=== PATIENT | male | born 1950 | race Caucasian/White ===

== ENCOUNTER 2017-09-16 11:45 | Inpatient (IN) ==
[2017-09-16] MEDS ORDERED: SALINE FLUSH 10ml SYRINGE IV ONE (12:19)
[2017-09-16] MEDS ORDERED: CEFTRIAXONE 1 G in NS 100 ML IV ONE (12:20)
[2017-09-16] MEDS ORDERED: NS 2,800 ML IV ONE (12:20)
--- NOTE | 2017-09-16 12:27 | Emergency Department Report ---
General Adult HPI - General Chief complaint: Medical Emergency Stated complaint: reaction to med,shaking,cant stand,cant talk, naus Time Seen by Provider: 09/16/17 12:06 Source: patient Mode of arrival: ambulatory - History of Present Illness HPI narrative: Noble is brought to the emergency room today by his for acute evaluation of shaking. She initially reports she felt the patient is having an ALLERGIC reaction to Lyrica. He was started on yesterday morning for sciatica type pain. He had no symptoms yesterday and took a dose morning and bedtime. This morning he woke up fine. However, several hours later began having shaking and chills. Arrival to the emergency room. He is noted to be having some shaking, heart rate 130, temperature 103, and room air saturations 90%. He is not having any respiratory distress or airways edema or compromise. Denies chest pain or shortness of breath. notes that patient has all of his lower teeth missing and he is working with a dentist in stages to get lower implants. Last Monday, 09/12. Patient had 2 lower gum screws placed for future implants. Onset (ago): hour(s) Radiation: non-radiation Severity: moderate Associated symptoms: other (Chills, Shaking) Treatments prior to arrival: none - Related Data Home Medications Medication Instructions Recorded Confirmed Acetaminophen 650 mg PO Q4H PRN 09/16/17 09/16/17 Calcium Carbonate/Vitamin D3 1 tab PO DAILY 09/16/17 09/16/17 [Calcium 600-Vit D3 400 Tablet] Finasteride [Proscar] 5 mg PO HS 09/16/17 09/16/17 Fish Oil/Dha/Epa [Fish Oil 1,200 1 cap PO DAILY 09/16/17 09/16/17 mg Fish Oil] Ginseng 100 mg PO DAILY 09/16/17 09/16/17 Losartan Potassium [Cozaar] 25 mg PO DAILY 09/16/17 09/16/17 Red Yeast Rice 600 mg PO BID 09/16/17 09/16/17 Saw [place] Fruit [Saw [place]] 450 mg PO BID 09/16/17 09/16/17 Ubidecarenone/Vit E Acet [Co Q-10 1 cap PO DAILY 09/16/17 09/16/17 100 mg Softgel] buPROPion HCl [Bupropion Xl] 150 mg PO DAILY 09/16/17 09/16/17 Allergies Allergy/AdvReac Type Severity Reaction Status Date / Time No Known Allergies Allergy Verified 09/16/17 12:23 Review of Systems All systems: reviewed and negative except as stated Constitutional: Reports: chills, other (shaking) PFSH Patient Stated Medical History Dental Problems Yes: recent dental implants Hypertension Yes Clinic Medical History (Last Reviewed 09/13/17 @ 10:02 by AIYANA Chambers) Lumbago (Chronic Medical) Radiculopathy of lumbosacral region (Chronic Medical) Mixed anxiety depressive disorder (Chronic Medical) Premature ejaculation, acquired, situational, moderate (Chronic Medical) Erectile dysfunction (Chronic Medical) BPH (benign prostatic hyperplasia) (Chronic Medical) Elevated PSA (Chronic Medical) Dr. Israel Mccauley Hypercholesteremia (Chronic Medical) Family History: Family History (Last Reviewed 09/13/17 @ 10:02 by AIYANA Chambers) Mother , Age 65 Multiple sclerosis Father , Age 70-lung cancer No problems noted. - Social History Smoking status: Never smoker Physical Exam - Normal Exams: Head:: Normocephalic without trauma Eyes:: Pupils are PERRLA w/ EOMI, No scleral icterus, irritation, or foreign bodies noted Neck:: Full range of motion, without adenopathy, JVD, bruits or thyromegaly Chest/Respirations:: Clear all brown, with good airflow, and symmetry bilaterally Cardiovascular:: Regular rate and rhythm, without murmur or gallop, Pulses 2+ all extremities, capillary refill, <2 seconds all extremities Abdomen:: Bowel sounds positive, soft, non-tender, non-distended Musculoskeletal:: No tenderness, or deformity noted, good range of motion, all extremities Integumentary:: No rashes, hives, or bruising noted, hair and nails, without abnormality Neurological:: Patient is alert, and oriented, cranial nerves, motor/sensory/ cerebellar, exams w/o gross deficits, to observation Psychiatric:: Patient exhibits, appropriate attention - ENT ENT exam: Present: other (lower teeth missing.) Course Course Narrative: 1415- Venous lactate and acetone are elevated as well as left shift with 20% bandemia. Given these findings, associated with tachycardia and fever. Patient may criteria for sepsis. Discussed with hospitalist, Dr. Mendes. She accepts patient for inpatient admission for further acute treatment. Reviewed labs, and plan of care with patient and . Somewhat sleepy from IV Benadryl. Otherwise, no symptoms Vital Signs Temperature 103.1 F H 09/16/17 12:05 Pulse Rate 130 H 09/16/17 12:05 Respiratory Rate 22 09/16/17 12:05 Blood Pressure 139/75 09/16/17 12:05 Pulse Oximetry 89 L 09/16/17 12:05 Temperature 103.0 F H 09/16/17 13:43 Pulse Rate 123 H 09/16/17 13:30 Respiratory Rate 20 09/16/17 13:30 Blood Pressure 103/53 09/16/17 13:30 Pulse Oximetry 93 09/16/17 13:30 Medical Decision Making - MDM Narrative Medical decision making narrative: Plan to admit to hospitalist for sepsis. Blood cultures pending, IV Rocephin and IV fluid bolus 30ml/kg given in ER - Differential Diagnosis allergic reaction, infection, pneumonia, SVT, sepsis - Lab Data Lab results reviewed: Yes: I reviewed the patient's lab results. Result diagrams: 09/16/17 12:38 09/16/17 12:39 Lab Results 09/16/17 09/16/17 09/16/17 Range/Units 12:38 12:39 12:39 WBC 6.3 (4.5-11.0) T/MM3 RBC 5.13 (4.50-5.90) M/MM3 Hgb 15.8 (13.5-17.5) GM/DL Hct 47.2 (41-53) % MCV 92.0 (80-100) UM3 MCH 30.8 (26-34) UUG MCHC 33.5 (31-37) GM/DL RDW Std Deviation 48.3 (36.9-50.2) FL Plt Count 140 (130-400) T/MM3 MPV 10.5 (9.4-12.4) UM3 Immature Gran % (Auto) Not performed Neut % (Auto) Not performed Lymph % (Auto) Not performed [place] % (Auto) Not performed Eos % (Auto) Not performed Baso % (Auto) Not performed Neut # (Auto) Not performed Lymph # (Auto) Not performed [place] # (Auto) Not performed Eos # (Auto) Not performed Baso # (Auto) Not performed Abs Immat Gran (auto) Not performed Neutrophils % (Manual) 75.0 H (33-66) % Band Neutrophils % 22.0 H (0-6) % Lymphocytes % (Manual) 3.0 L (23-45) % Neutrophils # (Manual) 4.7 (1.8-7.7) T/MM3 Band Neutrophils # 1.4 T/MM3 Lymphocytes # (Manual) 0.2 L (1-4.8) T/MM3 RBC Morph Comment Normal Turbidity < 20 (0-20) Sodium 144 (134-144) MEQ/L Potassium 4.5 (3.6-5) MEQ/L Chloride 105 (98-107) MEQ/L Carbon Dioxide 27 (22-30) MEQ/L Anion Gap 12 (5-15) MEQ/L BUN 19.0 (9-20) MG/DL Creatinine 0.9 (0.8-1.5) MG/DL GFR Calculation 84 BUN/Creatinine Ratio 21 (6-26) RATIO Glucose 132 H (75-110) MG/DL Calculated Osmolality 281 H (261-280) MOSM/KG Calcium 9.4 (8.4-10.2) MG/DL Total Bilirubin 1.50 H (0.20-1.30) MG/DL Icterus Index < 2 (0-7) AST 26 (17-59) U/L ALT 51 (21-72) U/L Alkaline Phosphatase 44 (38-126) U/L Total Protein 6.7 (6.3-8.2) G/DL Albumin 4.0 (3.5-5.0) G/DL Globulin 2.7 (2.4-3.6) G/DL Albumin/Globulin Ratio 1.5 (1.1-2.2) RATIO Plasma Lactate Cancelled Procalcitonin 3.16 H* NG/ML Specimen Hemolysis 21 (0-25) Ur Collection Type Urine Color (YELLOW) Urine Clarity Urine pH (5.0-8.0) Ur Specific [place] (1.015-1.025) Urine Protein (NEGATIVE) Urine Glucose (UA) (NEGATIVE) Urine Ketones (NEGATIVE) Urine Occult Blood (NEGATIVE) Urine Nitrate (NEGATIVE) Urine Bilirubin (NEGATIVE) Urine Urobilinogen (NORMAL) EU/DL Ur Leukocyte Esterase (NEGATIVE) Urinalysis Comment Specimen Comment Tests Not Done Reason Tests Not Done 09/16/17 09/16/17 09/16/17 Range/Units 13:16 13:27 14:18 WBC (4.5-11.0) T/MM3 RBC (4.50-5.90) M/MM3 Hgb (13.5-17.5) GM/DL Hct (41-53) % MCV (80-100) UM3 MCH (26-34) UUG MCHC (31-37) GM/DL RDW Std Deviation (36.9-50.2) FL Plt Count (130-400) T/MM3 MPV (9.4-12.4) UM3 Immature Gran % (Auto) Neut % (Auto) Lymph % (Auto) [place] % (Auto) Eos % (Auto) Baso % (Auto) Neut # (Auto) Lymph # (Auto) [place] # (Auto) Eos # (Auto) Baso # (Auto) Abs Immat Gran (auto) Neutrophils % (Manual) (33-66) % Band Neutrophils % (0-6) % Lymphocytes % (Manual) (23-45) % Neutrophils # (Manual) (1.8-7.7) T/MM3 Band Neutrophils # T/MM3 Lymphocytes # (Manual) (1-4.8) T/MM3 RBC Morph Comment Turbidity (0-20) Sodium (134-144) MEQ/L Potassium (3.6-5) MEQ/L Chloride (98-107) MEQ/L Carbon Dioxide (22-30) MEQ/L Anion Gap (5-15) MEQ/L BUN (9-20) MG/DL Creatinine (0.8-1.5) MG/DL GFR Calculation BUN/Creatinine Ratio (6-26) RATIO Glucose (75-110) MG/DL Calculated Osmolality (261-280) MOSM/KG Calcium (8.4-10.2) MG/DL Total Bilirubin (0.20-1.30) MG/DL Icterus Index (0-7) AST (17-59) U/L ALT (21-72) U/L Alkaline Phosphatase (38-126) U/L Total Protein (6.3-8.2) G/DL Albumin (3.5-5.0) G/DL Globulin (2.4-3.6) G/DL Albumin/Globulin Ratio (1.1-2.2) RATIO Plasma Lactate 2.6 H Procalcitonin NG/ML Specimen Hemolysis (0-25) Ur Collection Type Urine, clean catch Urine Color Yellow (YELLOW) Urine Clarity Clear Urine pH 6.5 (5.0-8.0) Ur Specific [place] 1.010 L (1.015-1.025) Urine Protein Negative (NEGATIVE) Urine Glucose (UA) Negative (NEGATIVE) Urine Ketones Negative (NEGATIVE) Urine Occult Blood Negative (NEGATIVE) Urine Nitrate Negative (NEGATIVE) Urine Bilirubin Negative (NEGATIVE) Urine Urobilinogen 0.2 (NORMAL) EU/DL Ur Leukocyte Esterase Negative (NEGATIVE) Urinalysis Comment Microscopic not ind. Specimen Comment Lab to recollect Tests Not Done Lactate Reason Tests Not Done Hemolyzed specimen - Radiology Data Radiology results reviewed: Yes: I reviewed the patient's radiology results. Disposition Clinical Impression: Sepsis Qualifiers: Sepsis type: sepsis due to unspecified organism Qualified Code(s): A41.9 - Sepsis, unspecified organism Disposition: 02 Acute Care Hosp, Other Condition: Stable Prescriptions: No Action buPROPion HCl [Bupropion Xl] 150 mg PO DAILY Ubidecarenone/Vit E Acet [Co Q-10 100 mg Softgel] 1 cap PO DAILY Finasteride [Proscar] 5 mg PO HS Red Yeast Rice 600 mg PO BID Ginseng 100 mg PO DAILY Fish Oil/Dha/Epa [Fish Oil 1,200 mg Fish Oil] 1 cap PO DAILY Losartan Potassium [Cozaar] 25 mg PO DAILY Acetaminophen 650 mg PO Q4H PRN PRN Reason: Pain Saw [place] Fruit [Saw [place]] 450 mg PO BID Calcium Carbonate/Vitamin D3 [Calcium 600-Vit D3 400 Tablet] 1 tab PO DAILY Referrals: Robbin Chung MD [Family Provider] - Time of Disposition: 14:25 - Seen By: midlevel
[2017-09-16] MEDS: SALINE FLUSH 10ml SYRINGE IVF PRN (12:37)
[2017-09-16] MEDS: ACETAMINOPHEN 500 MG TABLET PO PRN (12:54)
[2017-09-16] MEDS ORDERED: DiphenhydrAMINE 50 MG/ML INJECTION IVP ONE (13:29)
[2017-09-16] MEDS ORDERED: METHYLPREDNISOLONE SOD SUCC 125mg/2ml INJECTION IVP ONE (13:29)
[2017-09-16] MEDS ORDERED: KETOROLAC 30 MG/ML INJECTION IVP ONE (14:31)
--- NOTE | 2017-09-16 15:35 | History & Physical Report ---
History of Present Illness Date: 09/16/17 Chief complaint: shaking and chills HPI: Patient is a 67-year-old male who presents to the ER with his with complaints of shaking chills that started earlier this morning. He thought it was an allergic reaction to Lyrica. He was started on Lyrica yesterday by his PCP for radicular back pain and has taken 2 doses thus far. He is feeling fine yesterday and had no symptoms this morning upon awakening. Patient is in the process of getting dental implants. He currently has no lower teeth and has four "studs" implanted into the gums/lower jaw. 2 of these studs were just placed on 09/12/17. He has no chest pain or shortness of breath. No nausea or vomiting. In regard to his lumbosacral radicular symptoms, he has previously had 3 epidural steroid injections and has an MRI scheduled this coming Monday to further work up his symptoms. In the ER he was initially given diphenhydramine and methylprednisolone in the event this was an allergic reaction. He also complained of headache and was given a dose of 30 mg Toradol. When his lactate came back elevated and CBC revealed 22% bands, blood cultures were drawn and he was given a gram of Rocephin and was given 30 mg/kg IV normal saline per severe sepsis protocol. His chest x-ray was negative as well as his urinalysis. He was seen in the ER with his . He appeared drowsy, but was able to answer questions appropriately. Review of Systems All systems PM: 10-point ROS was reviewed, no additional remarkable complaints except - Constitutional Constitutional: Present: fatigue, fever(s), headache(s) - Neurological Neurological: Present: radicular pain (R leg. Pain in R buttock and numb feeling from knee down) PFSH Medical History Lumbago Radiculopathy of lumbosacral region Mixed anxiety depressive disorder Erectile dysfunction BPH - Elevated PSA Dr. Israel Mccauley Hypercholesteremia Surgical History: Carpal tunnel surgery on the right, appendectomy Family History: Family History Mother , Age 65 Multiple sclerosis Father , Age 70-lung cancer No problems noted. - Social History Smoking status: Never smoker Substance use type: does not use Alcohol intake frequency: does not drink Housing: house Household members: spouse Current occupational status: retired Previous occupational history: [employer] Social history: PCP-Leia Cano APRN with Dr. Chung Patient has also seen an high school learning support teacher in [place] for what he describes as a polyp near a nerve in his ear. Medications Home Medications Medication Instructions Recorded Confirmed Type Acetaminophen 650 mg PO Q4H PRN 09/16/17 09/16/17 History Calcium Carbonate/Vitamin D3 1 tab PO DAILY 09/16/17 09/16/17 History [Calcium 600-Vit D3 400 Tablet] Finasteride [Proscar] 5 mg PO HS 09/16/17 09/16/17 History Fish Oil/Dha/Epa [Fish Oil 1,200 1 cap PO DAILY 09/16/17 09/16/17 History mg Fish Oil] Ginseng 100 mg PO DAILY 09/16/17 09/16/17 History Losartan Potassium [Cozaar] 25 mg PO DAILY 09/16/17 09/16/17 History Red Yeast Rice 600 mg PO BID 09/16/17 09/16/17 History Saw [place] Fruit [Saw [place]] 450 mg PO BID 09/16/17 09/16/17 History Ubidecarenone/Vit E Acet [Co Q-10 1 cap PO DAILY 09/16/17 09/16/17 History 100 mg Softgel] buPROPion HCl [Bupropion Xl] 150 mg PO DAILY 09/16/17 09/16/17 History Allergies Allergy/AdvReac Type Severity Reaction Status Date / Time No Known Allergies Allergy Verified 09/16/17 12:23 Exam Vital Signs: Temperature 99.0 F 09/16/17 15:20 Pulse Rate 100 09/16/17 15:20 Respiratory Rate 18 09/16/17 15:20 Blood Pressure 110/57 09/16/17 15:20 Pulse Oximetry 93 09/16/17 15:26 Height/Weight/BMI: Height 1.7 m Weight 96.5 kg Body Mass Index 33.3 - Constitutional Present: no acute distress, well nourished, well developed - Routine HEENT Exam Head: Present: normocephalic, atraumatic Eye: Present: EOMI, PERRL ENT: Present: mucous membranes moist. Absent: dentition normal (edentulous on the lower. Has 4 dental studs implanted to the lower gums. No sign of swelling or redness or infection.) - Routine Neck Exam Present: supple. Absent: lymphadenopathy, thyromegaly - Routine Respiratory Exam Present: CTA bilaterally. Absent: wheezes - Routine Cardiovascular Exam Present: tachycardia. Absent: murmur Comments: Regular rhythm - Routine Abdominal Exam Present: soft, normoactive bowel sounds, non distended. Absent: tenderness - Routine Extremities Exam Present: no edema, normal capillary refill - Routine Skin Exam Present: dry, warm Comments: Mildly diaphoretic on his face. - Routine Neurological Exam Present: alert, oriented X3, CN II-XII intact - Routine Psychiatric Exam Present: normal affect, cooperative, good insight Results - Labs CBC & Chem 7: 09/16/17 12:38 09/16/17 12:39 Labs: Laboratory Tests 09/16/17 12:38 Neutrophils % (Manual) 75.0 H Band Neutrophils % 22.0 H Laboratory Tests 09/16/17 09/16/17 12:39 12:39 Total Bilirubin 1.50 H AST 26 ALT 51 Alkaline Phosphatase 44 Plasma Lactate Cancelled Procalcitonin 3.16 H* Urinalysis 09/16/17 14:18 Ur Collection Type Urine, clean catch Urine Color Yellow Urine Clarity Clear Urine pH 6.5 Ur Specific [place] 1.010 L Urine Protein Negative Urine Glucose (UA) Negative Urine Ketones Negative Urine Occult Blood Negative Urine Nitrate Negative Urine Bilirubin Negative Urine Urobilinogen 0.2 Ur Leukocyte Esterase Negative Respiratory panel 09/16/17 14:34 Adenovirus (PCR) Negative B.parapertussis DNA PCR Negative C. pneumoniae DNA (PCR) Negative Coronavirus OC43 (PCR) Negative Coronavirus HKU1 (PCR) Negative Coronavirus 229E (PCR) Negative Coronavirus NL63 (PCR) Negative Human Metapneumovir PCR Negative Influenza Type A (PCR) Negative Influenza Type B (PCR) Negative M. pneumoniae (PCR) Negative Parainfluenza 1 (PCR) Negative Parainfluenza 2 (PCR) Negative Parainfluenza 3 (PCR) Negative Parainfluenza 4 (PCR) Negative RSV (PCR) Negative Entero/Rhino (PCR) Negative - Imaging and Cardiology Chest x-ray Additional comments: preliminary read by ER doctor is neg Assessment and Plan (1) Sepsis Current visit: Yes Status: Acute Assessment and Plan: Impression Severe sepsis-based on suspected source of infection from recent dental work, SIRS criteria of temperature of 103, heart rate of 130 and 22% bands plus organ dysfunction evidenced by lactate of 2.6 Hypoxia Fever of unknown etiology Lumbago Radiculopathy of lumbosacral region Mixed anxiety depressive disorder Erectile dysfunction BPH - Elevated PSA Dr. sIrael Mccauley Hypercholesterolemia Plan Admit patient to inpatient status under the care of the hospitalist service ( Dr. Mendes, attending). Hospital stay is expected to exceed 2 overnights given his severe sepsis. He'll require close monitoring, antibiotic therapy, and IV fluids. Blood cultures have been drawn in the ER. 1 dose of Rocephin has been given. Patient has received 2800 mL of IV normal saline. Repeat lactate is ordered. Respiratory panel was neg. He was also given Toradol 30 mg IV in the ER for headache, and diphenhydramine 25 mg IV and methylprednisolone 125 mg IV for possible allergic reaction to Lyrica. Start cefepime 1 g IV every 6 hours, levofloxacin 750 mg IV every 24, and consult pharmacy for vancomycin dosing for treatment of sepsis of an unknown source. Will adjust antibiotic coverage as blood cultures are resulted. SCDs and Lovenox for VTE prophylaxis. Patient wishes to be a full code. Care to return to his PCP, Leia Cano APRN, on discharge. DVT Prophylaxis: SCD's, Lovenox Resuscitation Status: Full Code - Physician Narriative Physician: Tila Mendes MD Narriative: 09/16/17 18:18 Mr. Stephens was seen shortly after he arrived on the floor. She describes shaking chills earlier but was not aware of a temperature until he arrived in the emergency room. He denies diaphoresis and does not have any symptoms localizing source of infection including joint pain, dyspnea, cough, URI symptoms, diarrhea, dysuria, or wounds/skin changes. He continues to express concern that Lyrica caused presenting symptoms. He denies oral pain or inflammation after recent dental work. He's had no recent travel except to trip [facility] and does not hike or sheehan. Examination reveals an alert male with fluent speech There is no indication of erythema/inflammation along the lower dental ridge Neck is supple and without adenopathy No palpebral or nail splinter hemorrhages, no Osler's nodes/[place] lesions appreciated. Lungs clear except faint crackles at the left base initially-cleared with repeated inspiratory effort. Regular cardiac rhythm, normal S1-S2-no murmur appreciated either supine or upright. Abdomen benign. 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 Sepsis criteria met although source of sepsis is unclear. Recent dental work will require additional blood cultures to be obtained if fevers recur. Respiratory viral panel negative. At present sepsis of unknown origin and antibiotics initiated per protocol. Hemodynamically stable at present with mild hypoxia. Chest x-ray reviewed by myself-NAD. Follow with fluids. No recent epidural steroid injections. Recent outpatient records reviewed; discussed with ER provider. Sepsis Assessment - Evaluation SIRS Criteria: temperature > 100.9, pulse > 90 beats/minute, Bands > 10% Severe Sepsis: lactate > 2.0 mg/dL, increase in SOFA > or equal to 2 (platelet count 140,000 bilirubin 1.5; no blood gas available and at present I don't believe is indicated.) - Focused Exam-within 6 hours of IVF Bolus Date exam was performed: 09/16/17 Time exam was performed: 14:44 T 99.4 RR 18, BP 110/57, P 100, O2 sat 95% on 2L NC Respiratory exam: Present: CTA bilaterally Cardiovascular exam: Present: no murmur, tachycardia (regular rhythm) Capillary Refill: < 2Seconds Peripheral pulse strength: Normal Peripheral pulse location: Radial Skin Temperature: Warm Skin Color: [place] Hospital Course Summary Disclaimer: The visit summary below is not to be considered part of the above Progress Note. Hospital Course: Impression Severe sepsis-based on suspected source of infection from recent dental work, SIRS criteria of temperature of 103, heart rate of 130 and 22% bands plus organ dysfunction evidenced by lactate of 2.6 Hypoxia Fever of unknown etiology Lumbago Radiculopathy of lumbosacral region Mixed anxiety depressive disorder Erectile dysfunction BPH - Elevated PSA Dr. Israel Mccauley Hypercholesterolemia Plan Admit patient to inpatient status under the care of the hospitalist service ( Dr. Mendes, attending). Hospital stay is expected to exceed 2 overnights given his severe sepsis. He'll require close monitoring, antibiotic therapy, and IV fluids. Blood cultures have been drawn in the ER. 1 dose of Rocephin has been given. Patient has received 2800 mL of IV normal saline. Repeat lactate is ordered. Respiratory panel was neg. He was also given Toradol 30 mg IV in the ER for headache, and diphenhydramine 25 mg IV and methylprednisolone 125 mg IV for possible allergic reaction to Lyrica. Start cefepime 1 g IV every 6 hours, levofloxacin 750 mg IV every 24, and consult pharmacy for vancomycin dosing for treatment of sepsis of an unknown source. Will adjust antibiotic coverage as blood cultures are resulted. SCDs and Lovenox for VTE prophylaxis. Patient wishes to be a full code. Care to return to his PCP, Leia Cano APRN, on discharge.
[2017-09-16] MEDS ORDERED: VANCOMYCIN - PHARMACY CONSULT MC ONE (16:34)
[2017-09-16] MEDS: CEFEPIME 1 GM in NS 100 ML IV SCH ×2 (17:19→21:48)
[2017-09-16] MEDS: LEVOFLOXACIN PB 750 MG/150 ML BAG IV SCH (18:04)
[2017-09-16] MEDS: FINASTERIDE 5 MG TABLET PO SCH (20:09)
[2017-09-17] MEDS ORDERED: DiphenhydrAMINE 25 MG CAPSULE PO PRN (00:04)
[2017-09-17] MEDS: CEFEPIME 1 GM in NS 100 ML IV SCH ×4 (02:25→20:30)
[2017-09-17] MEDS: SAW PALMETTO FRUIT 450 MG PO SCH ×3 (06:20→21:22)
[2017-09-17] MEDS: ACETAMINOPHEN 500 MG TABLET PO PRN (07:48)
[2017-09-17] MEDS: BuPROPion XL 150mg (24HR) TABLET PO SCH (08:34)
[2017-09-17] MEDS: CALCIUM 600 + VIT D 400 TABLET PO SCH (08:34)
[2017-09-17] MEDS: ENOXAPARIN 40 MG/0.4 ML INJECTION SQ SCH (08:34)
[2017-09-17] MEDS: LOSARTAN 50 MG TABLET PO SCH (08:35)
[2017-09-17] MEDS: COENZYME Q-10 200mg TABLET PO SCH (08:39)
[2017-09-17] MEDS ORDERED: COENZYME Q-10 200mg TABLET PO SCH (09:00)
--- NOTE | 2017-09-17 09:30 | XRay Report ---
INDICATION: hypoxia, fever PROCEDURE: CHEST 2-VIEWS UPRIGHT (PA & LAT) Encounter: Initial COMPARISON: None FINDINGS: The lungs are clear without evidence of focal abnormal airspace opacity. There is no pleural effusion or pneumothorax. The heart size, mediastinal contours and pulmonary vascularity are within normal limits. There is no significant skeletal abnormality. IMPRESSION: No acute cardiopulmonary disease. .
[2017-09-17] MEDS: SALINE FLUSH 10ml SYRINGE IVF PRN ×2 (11:35→20:29)
--- NOTE | 2017-09-17 13:46 | Pharmacy Consult-Antibiotics ---
Pharmacy Consult-Vancomycin - Laboratory Information WBC 15.1 T/MM3 (4.5-11.0) H D 09/17/17 04:01 BUN 17.0 MG/DL (9-20) 09/17/17 04:01 Creatinine 0.8 MG/DL (0.8-1.5) 09/17/17 04:01 Procalcitonin 3.16 NG/ML H* 09/16/17 12:39 - Consult Information 67 yo Male started on Vancomycin protocol, Cefepime and Levofloxacin for empiric coverage of sepsis. goal Vancomycin trough range= 15 to 20 mcg/ml Vancomycin 2,000 mg IV x 1 dose then Vancomycin 1,500 mg IV Q12h ordered. Pharmacy will monitor and adjust as needed. Thank you, Sugar Reece [facility]
[2017-09-17] MEDS: LEVOFLOXACIN PB 750 MG/150 ML BAG IV SCH (16:19)
--- NOTE | 2017-09-17 17:04 | Progress Note ---
<Monisha Mejia D - Last Filed: 09/17/17 17:01> - Date 09/17/17 Subjective: Noble is seen today in follow up. He is feeling much better. Has been afebrile overnight per his report. He is not having any pain. D/W him plan of care. chart is reviewed for collateral information. Objective Vital signs: Temperature 97.2 F 09/17/17 15:26 Pulse Rate 67 09/17/17 15:26 Respiratory Rate 14 09/17/17 15:26 Blood Pressure 137/70 09/17/17 15:26 Pulse Oximetry 94 09/17/17 15:26 Height/Weight/BMI: Height 1.7 m Weight 96.1 kg Body Mass Index 33.3 - Constitutional Present: no acute distress, average body habitus, cooperative - Routine HEENT Exam Head: Present: normocephalic, atraumatic Eye: Present: EOMI, PERRL ENT: Present: mucous membranes moist - Routine Respiratory Exam Present: CTA bilaterally. Absent: dyspnea, decreased breath sounds, rales, rhonchi, wheezes, crackles - Routine Cardiovascular Exam Present: RRR, S1, S2, no murmur - Routine Abdominal Exam Present: soft, normoactive bowel sounds, non distended, non tender - Routine Extremities Exam Present: no edema, non tender, full ROM - Routine Musculoskeletal Exam Musculoskeletal: Present: no clubbing or cyanosis, normal strength, moving extremities well - Routine Skin Exam Present: intact, dry - Routine Neurological Exam Present: alert, oriented X3, CN II-XII intact, moving all extremities - Routine Psychiatric Exam Present: normal affect, normal thought process, cooperative Results - Labs CBC & Chem 7: 09/17/17 04:01 09/17/17 04:01 Microbiology Results: Microbiology 09/16/17 12:39 Peripheral/Iv Start Blood Culture - Preliminary No Growth After 1 Day 09/16/17 12:55 Peripheral/Iv Start Blood Culture - Preliminary No Growth After 1 Day Assessment and Plan (1) Sepsis Current visit: Yes Status: Acute Assessment and Plan: Impression Severe sepsis-based on suspected source of infection from recent dental work, SIRS criteria of temperature of 103, heart rate of 130 and 22% bands plus organ dysfunction evidenced by lactate of 2.6 Hypoxia Fever of unknown etiology Lumbago Radiculopathy of lumbosacral region Mixed anxiety depressive disorder Erectile dysfunction BPH - Elevated PSA Dr. Israel Mccauley Hypercholesterolemia Plan 09/17/17 *FUO- bandemia is much better. Leukocytosis is a favorable progression. Continue current antibiotics- await BC results. Negative so far. Will order an echo to R/O endocarditis due to dental work. If that is negative, could image lumbar spine to R/O discitis. So far imaging has been negative. *He is doing well otherwise. Continue home medications as appropriate. Repeat labs in am for stability. DVT px is ordered. DVT Prophylaxis: Lovenox Resuscitation Status: Full Code - Time spent with patient Time with patient PN: 30 minutes Hospital Course Summary Disclaimer: The visit summary below is not to be considered part of the above Progress Note. Hospital Course: Impression Severe sepsis-based on suspected source of infection from recent dental work, SIRS criteria of temperature of 103, heart rate of 130 and 22% bands plus organ dysfunction evidenced by lactate of 2.6 Hypoxia Fever of unknown etiology Lumbago Radiculopathy of lumbosacral region Mixed anxiety depressive disorder Erectile dysfunction BPH - Elevated PSA Dr. Israel Mccauley Hypercholesterolemia Plan Admit patient to inpatient status under the care of the hospitalist service ( Dr. Mendes, attending). Hospital stay is expected to exceed 2 overnights given his severe sepsis. He'll require close monitoring, antibiotic therapy, and IV fluids. Blood cultures have been drawn in the ER. 1 dose of Rocephin has been given. Patient has received 2800 mL of IV normal saline. Repeat lactate is ordered. Respiratory panel was neg. He was also given Toradol 30 mg IV in the ER for headache, and diphenhydramine 25 mg IV and methylprednisolone 125 mg IV for possible allergic reaction to Lyrica. Start cefepime 1 g IV every 6 hours, levofloxacin 750 mg IV every 24, and consult pharmacy for vancomycin dosing for treatment of sepsis of an unknown source. Will adjust antibiotic coverage as blood cultures are resulted. SCDs and Lovenox for VTE prophylaxis. Patient wishes to be a full code. Care to return to his PCP, Leia Cano APRN, on discharge. 09/17/17 17:09 09/17/17 *FUO- bandemia is much better. Leukocytosis is a favorable progression. Continue current antibiotics- await BC results. Negative so far. Will order an echo to R/O endocarditis due to dental work. If that is negative, could image lumbar spine to R/O discitis. So far imaging has been negative. *He is doing well otherwise. Continue home medications as appropriate. Repeat labs in am for stability. DVT px is ordered. <Tila Mendes - Last Filed: 09/17/17 17:53> - Date 09/17/17 Results - Labs CBC & Chem 7: 09/17/17 04:01 09/17/17 04:01 Assessment and Plan (1) Sepsis Current visit: Yes Status: Acute Assessment and Plan: I have independently evaluated and examined this patient. I reviewed the chart, the patient's history, and the FLOOR SURFACER/PA's documented findings as above. We discussed and formulated the assessment and plan as above with additions as below: Mr. Stephens was seen with his the bedside. He has had no concerns since admission and fever resolved after the initial temperatures described in the emergency room. He denies cough, diarrhea, recurrent rigors or chills, sore throat or sinus pain, or any discomfort urinating. Maximum temperature overnight was 98.2. NAD, alert, Sinuses nontender bilaterally frontal and maxillary Neck supple Respirations nonlabored, good airflow, breath sounds clear Regular rhythm, no cardiac murmur appreciated Abdomen benign White count elevated today but bands nearly resolved. Hyperglycemia persists. Check A1c in a.m. in addition to other labs. Hospital Course Summary Disclaimer: The visit summary below is not to be considered part of the above Progress Note.
[2017-09-17] MEDS: NS FLUSH BAG 500ml IV PRN (20:30)
[2017-09-17] MEDS: FINASTERIDE 5 MG TABLET PO SCH (20:40)
[2017-09-18] MEDS: CEFEPIME 1 GM in NS 100 ML IV SCH ×4 (02:34→20:29)
[2017-09-18] MEDS: SALINE FLUSH 10ml SYRINGE IVF PRN ×3 (02:34→20:28)
[2017-09-18 07:59] VITALS: O2SAT 95
[2017-09-18] MEDS: LOSARTAN 50 MG TABLET PO SCH (08:30)
[2017-09-18] MEDS: COENZYME Q-10 200mg TABLET PO SCH (08:30)
[2017-09-18] MEDS: CALCIUM 600 + VIT D 400 TABLET PO SCH (08:31)
[2017-09-18] MEDS: BuPROPion XL 150mg (24HR) TABLET PO SCH (08:31)
[2017-09-18] MEDS: ENOXAPARIN 40 MG/0.4 ML INJECTION SQ SCH (08:31)
[2017-09-18] MEDS: ACETAMINOPHEN 500 MG TABLET PO PRN ×2 (08:33→23:45)
[2017-09-18] MEDS: SAW PALMETTO FRUIT 450 MG PO SCH ×2 (09:17→22:58)
[2017-09-18] MEDS ORDERED: SALINE FLUSH 10ml SYRINGE ONE (11:06)
--- NOTE | 2017-09-18 11:22 | Progress Note ---
<Emani Freedman - Last Filed: 09/18/17 11:09> - Date 09/18/17 Subjective: Patient is seen sitting up in bed. He reports he feels fine. He did not sleep well last night, would like something to help him sleep tonight if he has to stay another day. He states his back pain has been less since he's been hospitalized. He's had pretty significant and consistent back pain since July. He reports his last epidural steroid injection was approximately 2-1/2 weeks ago. He continues to have some tingling in the right foot and ankle at the current time. He continues on cefepime, Levaquin, and vancomycin for sepsis of unknown source. Blood cultures have shown no growth at this time. His white blood cell count was elevated yesterday but is within normal limits today. His pro-calcitonin is significantly elevated today. He has had no fever since day of admission. No chest pain, shortness of breath, nausea or vomiting. Objective Vital signs: Temperature 98.8 F 09/18/17 07:58 Pulse Rate 82 09/18/17 07:58 Respiratory Rate 16 09/18/17 07:58 Blood Pressure 156/98 H 09/18/17 07:58 Pulse Oximetry 95 09/18/17 07:58 Height/Weight/BMI: Height 1.7 m Weight 94 kg Body Mass Index 33.3 - Constitutional Present: no acute distress, well nourished, well developed - Routine HEENT Exam ENT: Present: mucous membranes moist. Absent: dentition normal (edentulous- lower. Minimal erythema of the gum around right front post.) - Routine Respiratory Exam Present: CTA bilaterally. Absent: wheezes - Routine Cardiovascular Exam Present: RRR. Absent: murmur - Routine Abdominal Exam Present: soft, normoactive bowel sounds, non distended. Absent: tenderness - Routine Extremities Exam Present: no edema, normal capillary refill - Routine Skin Exam Present: dry, warm - Routine Neurological Exam Present: alert, oriented X3 - Routine Lymphatic Exam Lymphatic: Absent: adenopathy - Routine Psychiatric Exam Present: normal affect, cooperative Results - Labs CBC & Chem 7: 09/18/17 04:48 09/18/17 04:48 Labs: Laboratory Tests 09/18/17 09/18/17 04:48 04:48 Hemoglobin A1c 6.0 H Procalcitonin 23.22 H* Microbiology Results: Blood cultures-No growth after 1 day Assessment and Plan (1) Sepsis Current visit: Yes Status: Acute Assessment and Plan: Impression Severe sepsis-based on suspected source of infection from recent dental work, SIRS criteria of temperature of 103, heart rate of 130 and 22% bands plus organ dysfunction evidenced by lactate of 2.6 Hypoxia Fever of unknown etiology Lumbago Radiculopathy of lumbosacral region Thrombocytopenia-not POA Mixed anxiety depressive disorder Erectile dysfunction BPH - Elevated PSA Dr. Israel Mccauley Hypercholesterolemia Plan Echocardiogram results are currently pending. MRI of the lumbosacral spine with and without contrast is ordered to rule out discitis and further workup is ongoing back pain/radiculopathy Continue antibiotics for now. Overall he continues to do well. His platelets have decreased some since admission. Continue to follow. He is on Lovenox. Hospital Course Summary Disclaimer: The visit summary below is not to be considered part of the above Progress Note. Hospital Course: Impression Severe sepsis-based on suspected source of infection from recent dental work, SIRS criteria of temperature of 103, heart rate of 130 and 22% bands plus organ dysfunction evidenced by lactate of 2.6 Hypoxia Fever of unknown etiology Lumbago Radiculopathy of lumbosacral region Mixed anxiety depressive disorder Erectile dysfunction BPH - Elevated PSA Dr. Israel Mccauley Hypercholesterolemia 09/16/17-hospital admission Admit patient to inpatient status under the care of the hospitalist service ( Dr. Mendes, attending). Hospital stay is expected to exceed 2 overnights given his severe sepsis. He'll require close monitoring, antibiotic therapy, and IV fluids. Blood cultures have been drawn in the ER. 1 dose of Rocephin has been given. Patient has received 2800 mL of IV normal saline. Repeat lactate is ordered. Respiratory panel was neg. He was also given Toradol 30 mg IV in the ER for headache, and diphenhydramine 25 mg IV and methylprednisolone 125 mg IV for possible allergic reaction to Lyrica. Start cefepime 1 g IV every 6 hours, levofloxacin 750 mg IV every 24, and consult pharmacy for vancomycin dosing for treatment of sepsis of an unknown source. Will adjust antibiotic coverage as blood cultures are resulted. SCDs and Lovenox for VTE prophylaxis. Patient wishes to be a full code. Care to return to his PCP, Leia Cano APRN, on discharge. 09/17/17 *FUO- bandemia is much better. Leukocytosis is a favorable progression. Continue current antibiotics- await BC results. Negative so far. Will order an echo to R/O endocarditis due to dental work. If that is negative, could image lumbar spine to R/O discitis. So far imaging has been negative. *He is doing well otherwise. Continue home medications as appropriate. Repeat labs in am for stability. DVT px is ordered. 09/18/17 Echocardiogram results are currently pending. MRI of the lumbosacral spine with and without contrast is ordered to rule out discitis and further workup is ongoing back pain/radiculopathy Continue antibiotics for now. Overall he continues to do well. His platelets have decreased some since admission. Continue to follow. He is on Lovenox. <Luis Alberto Mendesabdirashid Carmichael - Last Filed: 09/18/17 21:52> - Date 09/18/17 Results - Labs CBC & Chem 7: 09/18/17 04:48 09/18/17 04:48 Assessment and Plan (1) Sepsis Current visit: Yes Status: Acute Assessment and Plan: I have independently evaluated and examined this patient. I reviewed the chart, the patient's history, and the DIESEL DINKEY OPERATOR/PA's documented findings as above. We discussed and formulated the assessment and plan as above with additions as below: Mr. Stephens was seen earlier this afternoon with his at the bedside. He reports that he feels fine and has had no further fever. He denied flank pain and reports that low back pain/radicular pain has improved somewhat after recent epidural injections. He denied dyspnea. The patient is alert, respirations are nonlabored with clear breath sounds, no cardiac murmur Abdomen benign, no CVAT, no tenderness on palpation over the lower spine MRI reviewed by myself and discussed with Dr. Hernandez-no evidence of discitis/ epidural abscess. DDD present with primary finding at L3-L4 with disc extrudes 12 mm causing bilateral neural foraminal narrowing and nerve root impingement especially on the right. Echocardiogram completed early today but not available for cardiology review this afternoon-have left message for echo techs to locate study so it can be interpreted. Given absence of ongoing symptoms will begin de-escalating antibiotics with discontinuation of cefepime and conversion to oral Levaquin. Continue vancomycin at present; hopefully echo can be reviewed tomorrow. Increase procalcitonin worrisome, would suggest antibiotics are not addressing bacterial process the patient is clinically stable and without recurrent fever. Lactic acidosis has resolved as has left shift and leukocytosis. Recheck procalcitonin in a.m. A1c 6.0, minimal elevation in blood sugars postprandially-discontinue Accu- Cheks. DVT Prophylaxis: Lovenox Resuscitation Status: Full Code Hospital Course Summary Disclaimer: The visit summary below is not to be considered part of the above Progress Note.
[2017-09-18 13:10] VITALS: BMI 32.4
[2017-09-18] MEDS: LEVOFLOXACIN PB 750 MG/150 ML BAG IV SCH (15:56)
--- NOTE | 2017-09-18 16:13 | Magnetic Resonance Report ---
EXAM: MR lumbar spine wo/w con DATE: 09/18/2017 12:00 AM COMPARISON: Prior MRI of the lumbar spine dated 11/18/2015 INDICATION: back pain, sepsis TECHNIQUE: Multi-planar multi-weighted magnetic resonance imaging of the lumbar spine was performed before and following intravenous gadolinium administration using the standard lumbar spine protocol. 18 cc of ProHance was administered intravenously for the exam. FINDINGS: The sagittal images show the lumbar vertebral bodies are of normal marrow signal intensity and contour and in good alignment without evidence of compression fracture deformity or subluxation. There is moderate degenerative narrowing of the L3-L4 disc space with some mild irregularity of the endplates and degenerative endplate Modic signal changes. This is stable when compared to the prior MRI of the lumbar spine dated 11/18/2015. No acute compression fractures or traumatic malalignment is are visualized. There is straightening of the lumbar lordosis. The conus terminates normally at the T12-L1 disc level. No clumping of intrathecal nerve roots is evident. Limited views of the abdomen and pelvis are unremarkable. Axial images: L1-L2: No significant disc bulging, spinal canal stenosis, or neural foraminal narrowing. L2-L3: Mild broad-based bulging of the disc is evident. There is mild facet joint arthrosis. The central canal and neural foramina are well-maintained. L3-L4: Broad-based bulging of the disc with associated facet joint arthrosis moderately narrowing the central canal to 8 mm. There is a superimposed right paracentral disc protrusion estimated at 6 mm in AP dimension. There is extruded disc material extending 12 mm below the superior endplate of L4. There is bilateral neural foraminal narrowing and nerve root impingement, right greater than left. L4-L5: Mild broad-based bulging of the disc with early facet joint arthrosis. There is no significant central canal or neural foraminal narrowing. L5-S1: Broad-based right paracentral disc protrusion measuring 4 mm in AP dimension and 16 mm in transverse dimension. There is associated facet joint arthrosis mildly narrowing the central canal to 11 mm. There is impingement on the right L5 and S1 nerve roots. IMPRESSION: 1. Broad-based disc bulge with superimposed right paracentral disc herniation at L3-L4 with extruded disc material extending 12 mm below the superior endplate of L4. There is bilateral neural foraminal narrowing and nerve root impingement right greater than left. 2. Broad-based right paracentral disc protrusion as described mildly narrowing the central canal. There is associated impingement on the right L5 and S1 nerve roots. 3. Mild bulging discs at L2-L3 and L4-L5 without significant central canal or neural foraminal stenosis. 4. Straightening of the lumbar lordosis which can indicate spasm. .
[2017-09-18] MEDS ORDERED: ZOLPIDEM 5 MG TABLET PO PRN (20:21)
[2017-09-18] MEDS: NS FLUSH BAG 500ml IV PRN (20:28)
[2017-09-18] MEDS: FINASTERIDE 5 MG TABLET PO SCH (20:35)
[2017-09-18 23:43] VITALS: PULSE 93
[2017-09-19] MEDS ORDERED: LEVOFLOXACIN 750 MG TABLET PO SCH (06:30)
[2017-09-19 07:36] VITALS: BP 141/90; RESP 16
[2017-09-19] MEDS: ACETAMINOPHEN 500 MG TABLET PO PRN (09:06)
[2017-09-19] MEDS: COENZYME Q-10 200mg TABLET PO SCH (09:06)
[2017-09-19] MEDS: SALINE FLUSH 10ml SYRINGE IVF PRN (09:06)
[2017-09-19] MEDS: CALCIUM 600 + VIT D 400 TABLET PO SCH (09:06)
[2017-09-19] MEDS: ENOXAPARIN 40 MG/0.4 ML INJECTION SQ SCH (09:06)
[2017-09-19] MEDS: LOSARTAN 50 MG TABLET PO SCH (09:06)
[2017-09-19] MEDS: BuPROPion XL 150mg (24HR) TABLET PO SCH (09:06)
[2017-09-19 09:10] VITALS: TEMP 97.8
[2017-09-19] MEDS: SAW PALMETTO FRUIT 450 MG PO SCH (09:16)
--- NOTE | 2017-09-19 11:06 | Pharmacy Consult-Antibiotics ---
Pharmacy Consult-Vancomycin - Laboratory Information WBC 6.4 T/MM3 (4.5-11.0) 09/19/17 07:36 BUN 15.0 MG/DL (9-20) 09/19/17 07:36 Creatinine 0.9 MG/DL (0.8-1.5) 09/19/17 07:36 Procalcitonin 8.85 NG/ML H* 09/19/17 07:36 Vancomycin Trough 14.62 UG/ML (15-20) L 09/19/17 07:36 - Consult Information VANCOMYCIN CONSULT: Vancomycin Trough = 14.6 mcg/ml. Today's SCr = 0.9 mg/dl. Will continue Vancomycin 1500 mg IV q12hrs. Will continue to monitor and make adjustments accordingly. Thank you.
--- NOTE | 2017-09-19 15:20 | Discharge Summary ---
Discharge Information Date of admission: 09/16/17 14:44 Anticipated date of discharge: 09/19/17 Attending Physician: Tila Mendes MD Primary care physician: Robbin Chung MD - Discharge Diagnosis (1) Fever of unknown origin Status: Acute (2) Sepsis Status: Acute Fever of unknown etiology Severe sepsis-infectious source not identified Hypoxia-POA, resolved Hyperglycemia-POA, resolved Degenerative disc disease with herniated disc L3-L4 with neuroforaminal narrowing Radiculopathy of lumbosacral region Thrombocytopenia him a mild-not POA Mixed anxiety depressive disorder BPH - Procedures Procedures: Transthoracic echocardiogram on 11/19/16-formal report pending at discharge however verbal report on date of discharge indicated no significant abnormalities and specifically no vegetations - Laboratory Labs: On admission (09/16/17) white count 6.3 with 22% bands, 75% neutrophils. Initial lactic acid 2.6 with subsequent study 1.5; initial procalcitonin 3.16 with follow-up study on 09/18-23.22 UA negative, respiratory viral panel negative 09/19/17 07:36 09/19/17 07:36 Differential at discharge unremarkable - Microbiology Cultures 2 negative after 3 days - Radiology Radiology: Chest x-ray on 09/16/17-NAD MRI of the lumbar spine with and without contrast on 09/18/17: The sagittal images show the lumbar vertebral bodies are of normal marrow signal intensity and contour and in good alignment without evidence of compression fracture deformity or subluxation. There is moderate degenerative narrowing of the L3-L4 disc space with some mild irregularity of the endplates and degenerative endplate Modic signal changes. This is stable when compared to the prior MRI of the lumbar spine dated 11/18/2015. No acute compression fractures or traumatic malalignment is are visualized. There is straightening of the lumbar lordosis. The conus terminates normally at the T12-L1 disc level. No clumping of intrathecal nerve roots is evident. Limited views of the abdomen and pelvis are unremarkable. Axial images: L1-L2: No significant disc bulging, spinal canal stenosis, or neural foraminal narrowing. L2-L3: Mild broad-based bulging of the disc is evident. There is mild facet joint arthrosis. The central canal and neural foramina are well-maintained. L3-L4: Broad-based bulging of the disc with associated facet joint arthrosis moderately narrowing the central canal to 8 mm. There is a superimposed right paracentral disc protrusion estimated at 6 mm in AP dimension. There is extruded disc material extending 12 mm below the superior endplate of L4. There is bilateral neural foraminal narrowing and nerve root impingement, right greater than left. L4-L5: Mild broad-based bulging of the disc with early facet joint arthrosis. There is no significant central canal or neural foraminal narrowing. L5-S1: Broad-based right paracentral disc protrusion measuring 4 mm in AP dimension and 16 mm in transverse dimension. There is associated facet joint arthrosis mildly narrowing the central canal to 11 mm. There is impingement on the right L5 and S1 nerve roots. IMPRESSION: 1. Broad-based disc bulge with superimposed right paracentral disc herniation at L3-L4 with extruded disc material extending 12 mm below the superior endplate of L4. There is bilateral neural foraminal narrowing and nerve root impingement right greater than left. 2. Broad-based right paracentral disc protrusion as described mildly narrowing the central canal. There is associated impingement on the right L5 and S1 nerve roots. 3. Mild bulging discs at L2-L3 and L4-L5 without significant central canal or neural foraminal stenosis. 4. Straightening of the lumbar lordosis which can indicate spasm. History of Present Illness HPI: Patient is a 67-year-old male who presents to the ER with his with complaints of shaking chills that started earlier this morning. He thought it was an allergic reaction to Lyrica. He was started on Lyrica yesterday by his PCP for radicular back pain and has taken 2 doses thus far. He is feeling fine yesterday and had no symptoms this morning upon awakening. Patient is in the process of getting dental implants. He currently has no lower teeth and has four "studs" implanted into the gums/lower jaw. 2 of these studs were just placed on 09/12/17. He has no chest pain or shortness of breath. No nausea or vomiting. In regard to his lumbosacral radicular symptoms, he has previously had 3 epidural steroid injections and has an MRI scheduled this coming Monday to further work up his symptoms. In the ER he was initially given diphenhydramine and methylprednisolone in the event this was an allergic reaction. He also complained of headache and was given a dose of 30 mg Toradol. When his lactate came back elevated and CBC revealed 22% bands, blood cultures were drawn and he was given a gram of Rocephin and was given 30 mg/kg IV normal saline per severe sepsis protocol. His chest x-ray was negative as well as his urinalysis. He was seen in the ER with his . He appeared drowsy, but was able to answer questions appropriately. Hospital Course This is a general summary of the patient's hospital course. For more details refer to the complete medical record. Hospital course: Impression Fever of unknown etiology Severe sepsis-based on suspected source of infection from recent dental work, SIRS criteria of temperature of 103, heart rate of 130 and 22% bands plus organ dysfunction evidenced by lactate of 2.6 Hypoxia-POA, resolved Hyperglycemia-POA, resolved DDD with L3-L4 herniation, bilateral neuroforaminal narrowing at L3-L4 Radiculopathy of lumbosacral region Mixed anxiety depressive disorder BPH - Elevated PSA Dr. Israel Mccauley Hypercholesterolemia Hospital course Mr. Stephens was admitted to the hospital service with tentative diagnosis of severe sepsis/fever of unknown origin. He was treated empirically with IV fluids and broad-spectrum antibiotics for sepsis of unknown cause. Antibiotics were continued through 09/18 when blood cultures were negative at 48 hours and testing to date was unremarkable. At that time cefepime was discontinued with continuation of Levaquin and vancomycin pending results of echocardiogram. Chest x-ray, UA, respiratory viral panel, examination, lumbar spine MRI, and echocardiogram were all without evidence of an infectious process. Echocardiogram was reported out on 09/19 with no evidence of vegetations; subsequently antibiotics are being discontinued. Fever resolved promptly after admission and did not recur throughout the hospitalization. Patient had significant left shift on admission with 22% bands; bands were nearly resolved on 09/17 although white count was higher than on admission and subsequently leukocytosis fully resolved. Etiology of fever on presentation remains uncertain at discharge. There was initial concern that patient's presenting symptoms may have been due to an allergic reaction to Lyrica which cannot be fully excluded although there were no other signs of serum sickness or allergic reaction. Right radicular pain was adequately controlled with Tylenol throughout the hospitalization. MRI did not indicate discitis or epidural abscess but confirmed presence of a herniated disc with neuroforaminal narrowing greater on the right side consistent with symptoms. Blood sugar was modestly elevated on admission with subsequent normalization. A1c 6.0. On 09/19 echocardiogram was formally read and patient was reassured that no abnormalities were described. The patient describes continuing to feel back to normal without dyspnea, cough, diarrhea, dysuria, change in back pain, or oral pain. Oropharynx is unremarkable and the lower dental bridge is without inflammation. Neck is supple. Respirations are nonlabored with good airflow. Cardiac rhythm is regular without murmur. Abdomen remains benign. Patient is stable for discharge. As noted previously I have elected to discontinue antibiotics but have asked that the patient monitors temperature 1- 2 times daily for the next 1-2 weeks and any time something feels out of the ordinary. He is to follow-up at his primary provider's office in approximately one week for reassessment. Further plans for management of sciatica can be discussed at that time. No change in medications was made during the hospitalization other than withholding Lyrica. Time spent with patient: discharge greater than 30 minutes Discharge Plan - Med Rec/Dispo Referrals/Follow Up: Leia Cano APRN [Advanced Practice Nurse] - [place] Instructions: Sepsis (GEN) Prescriptions: Continue buPROPion HCl [Bupropion Xl] 150 mg PO DAILY Ubidecarenone/Vit E Acet [Co Q-10 100 mg Softgel] 1 cap PO DAILY Finasteride [Proscar] 5 mg PO HS Red Yeast Rice 600 mg PO BID Ginseng 100 mg PO DAILY Fish Oil/Dha/Epa [Fish Oil 1,200 mg Fish Oil] 1 cap PO DAILY Losartan Potassium [Cozaar] 25 mg PO DAILY Acetaminophen 650 mg PO Q4H PRN PRN Reason: Pain Saw [place] Fruit [Saw Denver] 450 mg PO BID Calcium Carbonate/Vitamin D3 [Calcium 600-Vit D3 400 Tablet] 1 tab PO DAILY - Disposition 01 Discharged Home, Self-Care
--- NOTE | 2017-09-20 10:17 | Echocardiogram ---
DATE OF PROCEDURE September 18, [address] Tila Mendes This is a two-dimensional echo with spectral Doppler, color-flow and M-mode. It was obtained in a patient with fever of unknown origin. Left atrial dimension is normal. Left ventricular end-diastolic dimension is normal. Left ventricular wall thickness is normal. LV systolic function is normal with ejection fraction of 55%. Right atrium is normal. Right ventricle is normal. Aortic root dimension is normal. Mitral valve is morphologically normal with mild mitral regurgitation. Aortic valve appears to be normal in structure with no stenosis or insufficiency. Tricuspid valve shows mild tricuspid regurgitation with normal structure. Pulmonary artery systolic pressure is estimated at 29. Pulmonary valve shows trace of pulmonary insufficiency. There is no pericardial effusion. IMPRESSION 1. Grossly no vegetations. 2. Normal LV systolic function with ejection fraction of 55%. 3. Mild mitral regurgitation. 4. Mild tricuspid regurgitation with normal estimated pulmonary artery systolic pressure of 29. 5. Trace of pulmonary insufficiency. MTDD
== END 2017-09-19 15:45 | disposition home or self-care (01) | DRG 872 ==
LOC: ED 11:45 → MED 14:44
PROVIDERS: ADMIT Internal Medicine; ATTEND Internal Medicine